=== PATIENT | female | born 1935 | race Caucasian/White ===

== ENCOUNTER 2021-07-07 15:12 | Outpatient (CLI) | payer MEDICARE | END 2021-07-07 15:13 | disposition home or self-care (01) | LOC: SCSRAD 15:12 | PROVIDERS: ATTEND Nurse Practitioner Family | DX: R06.00 Dyspnea, unspecified (principal); M41.9 Scoliosis, unspecified | CPT/HCPCS: 71046 ==

== ENCOUNTER 2021-07-28 11:32 | Outpatient (CLI) | payer MEDICARE | END 2021-07-28 11:33 | disposition home or self-care (01) | LOC: SCSRAD 11:32 | PROVIDERS: ATTEND Family Medicine | DX: R06.02 Shortness of breath (principal) | CPT/HCPCS: 71046 ==

== ENCOUNTER 2021-10-30 08:45 | Outpatient (CLI) | payer MEDICARE | END 2021-10-30 08:46 | disposition home or self-care (01) | LOC: RAD 08:45 | PROVIDERS: ATTEND Internal Medicine Critical Care Medicine | DX: R06.00 Dyspnea, unspecified (principal) | CPT/HCPCS: 71046 ==

== ENCOUNTER 2023-02-06 08:45 | Day surgery (SDC) | payer MEDICARE ==
[~2023-02-06 08:45] MED LIST: Acetaminophen 500 MG TAB PO SCH; diphenhydrAMINE 25 MG CAP PO SCH
[2023-02-06] MEDS ORDERED: Acetaminophen 500 MG TAB ONE (10:03)
[2023-02-06] MEDS ORDERED: diphenhydrAMINE 25 MG CAP ONE (10:03)
[2023-02-06 13:18] VITALS: BP 146/69; TEMP 97.6
== END 2023-02-06 12:56 | disposition home or self-care (01) ==
LOC: ONC/OP 08:45
PROVIDERS: ATTEND Internal Medicine
DX: D64.9 Anemia, unspecified (principal)
CPT/HCPCS: 36430; 86850; 86900; 86901; 86920; P9016; 36415

== ENCOUNTER 2023-08-23 07:06 | Outpatient (CLI) | payer MEDICARE | END 2023-08-23 07:07 | disposition home or self-care (01) | LOC: CT 07:06 | PROVIDERS: ATTEND Internal Medicine | DX: C18.9 Malignant neoplasm of colon, unspecified (principal); J92.9 Pleural plaque without asbestos; J98.4 Other disorders of lung; R91.8 Other nonspecific abnormal finding of lung field | CPT/HCPCS: 71260 ==

== ENCOUNTER 2024-03-09 08:52 | Outpatient (CLI) | payer MEDICARE ==
[~2024-03-09 08:52] MED LIST changes: -Acetaminophen 500 MG TAB PO SCH; +Iopamidol 370 76% 100 ML VIAL ONE; -diphenhydrAMINE 25 MG CAP PO SCH
== END 2024-03-09 08:53 | disposition home or self-care (01) ==
LOC: BICCT 08:52
PROVIDERS: ATTEND Internal Medicine
DX: C18.2 Malignant neoplasm of ascending colon (principal); R91.8 Other nonspecific abnormal finding of lung field; J98.4 Other disorders of lung; I77.810 Thoracic aortic ectasia; I70.0 Atherosclerosis of aorta; N28.89 Other specified disorders of kidney and ureter; K57.30 Diverticulosis of large intestine without perforation or abscess without bleeding; M47.819 Spondylosis without myelopathy or radiculopathy, site unspecified; M43.8X5 Other specified deforming dorsopathies, thoracolumbar region; I25.10 Atherosclerotic heart disease of native coronary artery without angina pectoris; M46.1 Sacroiliitis, not elsewhere classified; Z90.49 Acquired absence of other specified parts of digestive tract; Z98.890 Other specified postprocedural states
CPT/HCPCS: 71260; 74177; 82565; Q9967